=== PATIENT | female | born 1965 | race African-American/Black ===

== ENCOUNTER 2018-06-25 08:19 | Emergency (ER) | payer MEDICAID ==
[~2018-06-25] VITALS: Ht 160 cm; Wt 104.3 kg
[2018-06-25 09:16] VITALS: BP 15/67
[2018-06-25] MEDS ORDERED: KETOROLAC TROMETH 60MG/2ML VIAL IM ONE (09:45)
== END 2018-06-25 10:13 | disposition home or self-care (01) ==
LOC: ER 08:19
DX: M54.5 Low back pain (principal); G89.29 Other chronic pain
CPT/HCPCS: 96372; 99283; J1885

== ENCOUNTER 2018-07-15 09:02 | Emergency (ER) | payer MEDICAID ==
[~2018-07-15] VITALS: Ht 160 cm; Wt 102.7 kg
[2018-07-15 10:56] VITALS: BP 137/109
[2018-07-15] MEDS ORDERED: KETOROLAC TROMETH 60MG/2ML VIAL IM ONE (12:00)
== END 2018-07-15 12:48 | disposition home or self-care (01) ==
LOC: ER 09:02
DX: M17.0 Bilateral primary osteoarthritis of knee (principal); R09.81 Nasal congestion; F32.9 Major depressive disorder, single episode, unspecified; F20.9 Schizophrenia, unspecified; M54.5 Low back pain; G89.29 Other chronic pain
CPT/HCPCS: 73562; 96372; 99283; J1885